=== PATIENT | male | born 1950 | race Hispanic/Latino ===

== ENCOUNTER 2017-03-17 16:02 | Emergency (ER) | payer MEDICAID, OTHER ==
[2017-03-17 16:02] VITALS: BMI 25.7
[2017-03-17 16:38] VITALS: BP 99/68; PULSE 86; RESP 18; TEMP 97.3; O2SAT 99
--- NOTE | 2017-03-17 17:35 | C.PDOC ---
History Of Present Illness Patient is a 66 year old male who presents to the ER requesting detox of ETOH and "everything" elce. Patient is vague about his history with substance abuse. Denies any PMHx. Did not prescreen by detox. Has no physical complaints at time. Time Seen by Provider: 03/17/17 17:28 Chief Complaint (Nursing): Substance Abuse History Per: Patient History/Exam Limitations: no limitations Onset/Duration Of Symptoms: Hrs Current Symptoms Are (Timing): Still Present Modifying Factor(s): Alcohol, Other (Unknown substance) Past Medical History Reviewed: Historical Data, Nursing Documentation, Vital Signs Vital Signs: Last Vital Signs Temp 97.3 F L 03/17/17 16:35 Pulse 86 03/17/17 16:35 Resp 18 03/17/17 16:35 BP 99/68 L 03/17/17 16:35 Pulse Ox 99 03/17/17 17:51 - Medical History PMH: No Chronic Diseases Surgical History: No Surg Hx - [facility] Procedures CLOSURE SKIN & SUBCUTANEOUS NEC (03/30/15) DPT ADMINISTRATION (04/18/15) INJECT/INFUSE NEC (04/18/15) VENOUS PUNCTURE NEC (04/25/14) Family History: States: No Known Family Hx - Social History Hx Tobacco Use: Yes Hx Alcohol Use: Yes Hx Substance Use: Yes Review Of Systems Constitutional: Negative for: Fever, Chills Respiratory: Negative for: Cough, Shortness of Breath Gastrointestinal: Negative for: Nausea, Vomiting Physical Exam - Physical Exam Appears: Well, Non-toxic Skin: Normal Color, Warm, Dry Head: Atraumatic, Normacephalic Oral Mucosa: Moist Chest: Symmetrical, No Tenderness Cardiovascular: Rhythm Regular, No Murmur Respiratory: Normal Breath Sounds, No Rales, No Rhonchi, No Wheezing Gastrointestinal/Abdominal: Soft, No Tenderness Neurological/Psych: Oriented x3, Normal Speech, Normal Cognition ED Course And Treatment O2 Sat by Pulse Oximetry: 99 (Room air) Pulse Ox Interpretation: Normal Medical Decision Making Medical Decision Making: Patient not evaluated for detox due to lack of bed availability. Disposition Counseled Patient/Family Regarding: Need For Followup - Disposition Disposition: HOME/ ROUTINE Disposition Time: 17:33 Condition: FAIR Additional Instructions: call [phone] to see when there is a bed open Forms: General Discharge Instructions - Clinical Impression Clinical Impression: Drug abuse - Scribe Statement The provider has reviewed the documentation as recorded by the Scribe Bryan Lo All medical record entries made by the Scribe were at my direction and personally dictated by me. I have reviewed the chart and agree that the record accurately reflects my personal performance of the history, physical exam, medical decision making, and the department course for this patient. I have also personally directed, reviewed, and agree with the discharge instructions and disposition.
== END 2017-03-17 17:50 | disposition home or self-care (01) ==
LOC: C.ER 16:02
DX: F19.10 Other psychoactive substance abuse, uncomplicated (principal)

== ENCOUNTER 2017-03-18 11:26 | Emergency (ER) | payer MEDICAID ==
[2017-03-18 11:32] VITALS: BMI 22.2
[2017-03-18 11:36] VITALS: RESP 20
--- NOTE | 2017-03-18 12:51 | C.PDOC ---
History Of Present Illness 66-year-old male, presents to the emergency department requesting detox from alcohol. Patients last drink was this morning. Denies nausea/vomiting, SI/HI, or any other associated symptoms. No other complaints at this time. Time Seen by Provider: 03/18/17 12:00 Chief Complaint (Nursing): Substance Abuse History Per: Patient History/Exam Limitations: no limitations Past Medical History Reviewed: Historical Data, Nursing Documentation, Vital Signs Vital Signs: Last Vital Signs Temp 98.0 F 03/18/17 12:56 Pulse 80 03/18/17 12:56 Resp 20 03/18/17 12:56 BP 108/77 03/18/17 12:56 Pulse Ox 100 03/18/17 15:22 - [facility] Procedures CLOSURE SKIN & SUBCUTANEOUS NEC (03/30/15) DPT ADMINISTRATION (04/18/15) INJECT/INFUSE NEC (04/18/15) VENOUS PUNCTURE NEC (04/25/14) Family History: States: Unknown Family Hx - Social History Hx Tobacco Use: Yes Hx Alcohol Use: Yes Hx Substance Use: No - Immunization History Hx Tetanus Toxoid Vaccination: No Hx Influenza Vaccination: No Hx Pneumococcal Vaccination: No Review Of Systems Except As Marked, All Systems Reviewed And Found Negative. Constitutional: Negative for: Fever Cardiovascular: Negative for: Chest Pain Respiratory: Negative for: Shortness of Breath Musculoskeletal: Negative for: Back Pain Skin: Negative for: Rash Neurological: Negative for: Weakness, Numbness, Headache, Dizziness Psych: Negative for: Suicidal ideation Physical Exam - Physical Exam Appears: Non-toxic, No Acute Distress, Other (No signs or symptoms of acute withdrawal. No tremors) Skin: Warm, Dry, No Rash Head: Atraumatic, Normacephalic Eye(s): bilateral: Normal Inspection, PERRL Nose: Normal Oral Mucosa: Moist Tongue: Other (No tongue fasciculation) Neck: Normal ROM Respiratory: No Accessory Muscle Use Extremity: Normal ROM Neurological/Psych: Oriented x3, Normal Speech ED Course And Treatment O2 Sat by Pulse Oximetry: 100 Medical Decision Making Medical Decision Making: Patient seen and evaluated by precast concrete ironworker, who states that there are no detox beds available. Patient will be given instructions to f/u, and information for detox co-ordinator. All questions answered. Patient is agreeable with plan. Disposition - Disposition Disposition: HOME/ ROUTINE Disposition Time: 12:36 Condition: STABLE Additional Instructions: Follow up with PMD within 1-2 days. Return to ED if feel worse. Instructions: Abuse of Alcohol (ED) - Clinical Impression Clinical Impression: Alcohol abuse - Scribe Statement The provider has reviewed the documentation as recorded by the Israibmelecio Narvaez All medical record entries made by the Israibmelecio were at my direction and personally dictated by me. I have reviewed the chart and agree that the record accurately reflects my personal performance of the history, physical exam, medical decision making, and the department course for this patient. I have also personally directed, reviewed, and agree with the discharge instructions and disposition.
[2017-03-18 12:58] VITALS: BP 108/77; PULSE 80; TEMP 98
[2017-03-18 15:20] VITALS: O2SAT 100
== END 2017-03-18 12:58 | disposition home or self-care (01) ==
LOC: C.ER 11:26
DX: F10.10 Alcohol abuse, uncomplicated (principal); Y90.9 Presence of alcohol in blood, level not specified

== ENCOUNTER 2017-03-19 16:16 | Emergency (ER) | payer MEDICAID ==
[2017-03-19 16:16] VITALS: BMI 22.2
[2017-03-19 16:27] VITALS: BP 99/64; PULSE 82; RESP 16; TEMP 97.5; O2SAT 97
--- NOTE | 2017-03-19 17:04 | C.PDOC ---
History Of Present Illness 66-year-old male PMHx of EtOH Abuse presents to the emergency department requesting detox from alcohol. Patient has no current physical complaints. Time Seen by Provider: 03/19/17 16:56 Chief Complaint (Nursing): Substance Abuse History Per: Patient History/Exam Limitations: no limitations Past Medical History Reviewed: Historical Data, Nursing Documentation, Vital Signs Vital Signs: Last Vital Signs Temp 97.5 F L 03/19/17 16:26 Pulse 82 03/19/17 16:26 Resp 16 03/19/17 16:26 BP 99/64 L 03/19/17 16:26 Pulse Ox 97 03/24/17 12:09 - [facility] Procedures CLOSURE SKIN & SUBCUTANEOUS NEC (03/30/15) DPT ADMINISTRATION (04/18/15) INJECT/INFUSE NEC (04/18/15) VENOUS PUNCTURE NEC (04/25/14) Family History: States: Unknown Family Hx - Social History Hx Tobacco Use: Yes Hx Alcohol Use: Yes Hx Substance Use: No - Immunization History Hx Tetanus Toxoid Vaccination: No Hx Influenza Vaccination: No Hx Pneumococcal Vaccination: No Review Of Systems Except As Marked, All Systems Reviewed And Found Negative. Constitutional: Negative for: Fever, Chills Cardiovascular: Negative for: Chest Pain, Palpitations Gastrointestinal: Negative for: Vomiting Skin: Negative for: Rash Neurological: Negative for: Headache, Dizziness Psych: Negative for: Suicidal ideation Physical Exam - Physical Exam Appears: Non-toxic, No Acute Distress Skin: Warm, Dry, No Rash Eye(s): bilateral: Normal Inspection Nose: Normal Lips: Normal Appearing Neck: Normal ROM Respiratory: No Accessory Muscle Use Extremity: Normal ROM Neurological/Psych: Oriented x3, Normal Speech ED Course And Treatment O2 Sat by Pulse Oximetry: 97 (RA) Pulse Ox Interpretation: Normal Progress Note: Spoke with crisis counselor Negro, there are no current detox beds available at this time. He was instructed to return to ED at later date, and given crisis number for prescreening. Disposition Counseled Patient/Family Regarding: Studies Performed, Diagnosis, Need For Followup - Disposition Referrals: [facility] [Outside] Disposition: HOME/ ROUTINE Disposition Time: 17:20 Condition: STABLE Additional Instructions: RETURN TO ER TO TRY FOR DETOX BED, OR CALL CRISIS NUMBER GIVEN TO YOU DURING PREVIOUS ED VISIT Instructions: Alcohol Dependence (ED) Print Language: PORTUGUESE - POA Present On Arrival: None - Clinical Impression Clinical Impression: Alcohol abuse - Scribe Statement The provider has reviewed the documentation as recorded by the Scribe Douglas Narvaez All medical record entries made by the Israibe were at my direction and personally dictated by me. I have reviewed the chart and agree that the record accurately reflects my personal performance of the history, physical exam, medical decision making, and the department course for this patient. I have also personally directed, reviewed, and agree with the discharge instructions and disposition.
--- NOTE | 2017-03-19 17:08 | C.PDOC ---
Time Seen by Provider: 03/19/17 16:56 Chief Complaint (Nursing): Substance Abuse Past Medical History Vital Signs: Last Vital Signs Temp 97.5 F L 03/19/17 16:26 Pulse 82 03/19/17 16:26 Resp 16 03/19/17 16:26 BP 99/64 L 03/19/17 16:26 Pulse Ox 97 03/19/17 16:26 - [facility] Procedures CLOSURE SKIN & SUBCUTANEOUS NEC (03/30/15) DPT ADMINISTRATION (04/18/15) INJECT/INFUSE NEC (04/18/15) VENOUS PUNCTURE NEC (04/25/14) Family History: States: Unknown Family Hx - Social History Hx Tobacco Use: Yes Hx Alcohol Use: Yes Hx Substance Use: No - Immunization History Hx Tetanus Toxoid Vaccination: No Hx Influenza Vaccination: No Hx Pneumococcal Vaccination: No ED Course And Treatment O2 Sat by Pulse Oximetry: 97 Disposition Counseled Patient/Family Regarding: Studies Performed, Diagnosis, Need For Followup - Disposition Referrals: [facility] [Outside] Disposition: HOME/ ROUTINE Disposition Time: 17:00 Condition: STABLE Additional Instructions: RETURN TO ER TO TRY FOR DETOX BED, OR CALL CRISIS NUMBER GIVEN TO YOU DURING PREVIOUS ED VISIT Instructions: Alcohol Dependence (ED) Print Language: DUTCH - POA Present On Arrival: None - Clinical Impression Clinical Impression: Alcohol abuse
== END 2017-03-19 17:10 | disposition home or self-care (01) ==
LOC: C.ER 16:16
DX: F10.10 Alcohol abuse, uncomplicated (principal); Y90.9 Presence of alcohol in blood, level not specified

== ENCOUNTER 2017-06-19 14:02 | Emergency (ER) | payer SELFPAY ==
[2017-06-19 14:03] VITALS: BMI 22.2
[2017-06-19 14:11] VITALS: BP 124/84; PULSE 78; RESP 20; TEMP 98; O2SAT 95
--- NOTE | 2017-06-19 14:31 | C.PDOC ---
History Of Present Illness 66 yr old male brought in via BLS, presents to the ER for being found drunk on street. AT present time, pt appears awake, verbal, admits ' drinking a lot". Patient denies known trauma or injury, headache, chest pain, SOB, dyspnea, palpitation, abd. pain, nausea, vomiting, denies SI or HI. Poor historian, No obvious evidence of trauma noted. Time Seen by Provider: 06/19/17 14:16 Chief Complaint (Nursing): Substance Abuse History Per: Patient, EMS History/Exam Limitations: no limitations, intoxication Onset/Duration Of Symptoms: Persistent Modifying Factor(s): Alcohol Past Medical History Reviewed: Historical Data, Nursing Documentation, Vital Signs Vital Signs: Last Vital Signs Temp 98 F 06/19/17 14:05 Pulse 78 06/19/17 14:05 Resp 20 06/19/17 14:05 BP 124/84 06/19/17 14:05 Pulse Ox 95 06/19/17 15:21 - [facility] Procedures CLOSURE SKIN & SUBCUTANEOUS NEC (03/30/15) DPT ADMINISTRATION (04/18/15) INJECT/INFUSE NEC (04/18/15) VENOUS PUNCTURE NEC (04/25/14) Family History: States: No Known Family Hx - Social History Hx Tobacco Use: Yes Hx Alcohol Use: Yes Hx Substance Use: No - Immunization History Hx Tetanus Toxoid Vaccination: No Hx Influenza Vaccination: No Hx Pneumococcal Vaccination: No Review Of Systems Except As Marked, All Systems Reviewed And Found Negative. Cardiovascular: Negative for: Chest Pain Respiratory: Negative for: Shortness of Breath Gastrointestinal: Negative for: Nausea, Vomiting Psych: Negative for: Suicidal ideation Physical Exam - Physical Exam Appears: Well, Non-toxic, No Acute Distress Skin: Warm, Dry, No Rash, No Ecchymosis Head: Atraumatic, Normacephalic Eye(s): bilateral: PERRL Nose: No Discharge, No Deformity, No Tenderness Oral Mucosa: Moist, No Drooling, Other ((+)strong alcohol odor) Tongue: Normal Appearing Lips: Normal Appearing Throat: No Drooling Neck: No Midline Cervical Tenderness, No Paracervical Tenderness, No Step Off Deformity, Supple Chest: Symmetrical, No Deformity, No Tenderness Cardiovascular: Rhythm Regular, No Edema, No Friction Rub, No Murmur, No JVD Respiratory: No Rales, No Wheezing Gastrointestinal/Abdominal: Soft, No Tenderness, No Distention, No Guarding Back: No Vertebral Tenderness Extremity: Normal ROM, No Pedal Edema, No Deformity, No Swelling Neurological/Psych: Oriented x3, Normal Speech, Normal Motor, Normal Sensation, Normal Reflexes ED Course And Treatment O2 Sat by Pulse Oximetry: 95 Progress Note: As per RN, pt refused EKG, denies CP, SOB. FSBS 79. Pt asked for food, was fed, tolerate PO well in Ed. Pt was ambulatory in ED, asking for discharge. At 15:45, pt was not found in any area of ED, eloped ED department. Pt was called three times by name without response. Pt eloped from ED department. Medical Decision Making Medical Decision Making: PLAN: * EKG Disposition - Disposition Disposition: ELOPEMENT - ER ONLY Disposition Time: 15:45 Condition: STABLE - Clinical Impression Clinical Impression: Alcohol intoxication - PA / CASE ASSEMBLER / Resident Statement MD/DO has reviewed & agrees with the documentation as recorded. - Scribe Statement The provider has reviewed the documentation as recorded by the Scribe Susana Borges All medical record entries made by the Scribe were at my direction and personally dictated by me. I have reviewed the chart and agree that the record accurately reflects my personal performance of the history, physical exam, medical decision making, and the department course for this patient. I have also personally directed, reviewed, and agree with the discharge instructions and disposition.
--- NOTE | 2017-06-22 12:28 | CARD ---
APPROVED REPORT EKG Measurement Heart [id number] CT [id number] <Conclusion> Normal sinus rhythm Normal ECG
== END 2017-06-19 15:30 | disposition left against medical advice (07) ==
LOC: C.ER 14:02
DX: F10.120 Alcohol abuse with intoxication, uncomplicated (principal); Y90.9 Presence of alcohol in blood, level not specified

== ENCOUNTER 2017-06-19 17:17 | Observation (INO) | payer SELFPAY ==
[2017-06-19 17:18] VITALS: BMI 22.2
--- NOTE | 2017-06-19 17:42 | C.PDOC ---
History Of Present Illness <Siomara Main - Last Filed: 06/19/17 18:39> <Shayan Miles - Last Filed: 06/19/17 20:59> <Blaine Puente - Last Filed: 06/19/17 23:28> Patient presents to the ER with acute ETOH intoxication. Pt was seen here early today due to same complain- alcohol intoxication when eloped from ED. At present time, pt resent more intoxicated, non-verbal but awake. As per EKS,"was found outside, drunk". No obvious sign of injury. no hx available from pt due to acute alcohol intoxication. (Siomara Main) History Per: EMS History/Exam Limitations: language barrier Onset/Duration Of Symptoms: Persistent Modifying Factor(s): Alcohol <Siomara Main - Last Filed: 06/19/17 18:39> <Shayan Miles - Last Filed: 06/19/17 20:59> <Blaine Puente - Last Filed: 06/19/17 23:28> Time Seen by Provider: 06/19/17 17:33 Chief Complaint (Nursing): Substance Abuse Past Medical History Reviewed: Historical Data, Nursing Documentation, Vital Signs Family History: States: No Known Family Hx - Social History Hx Tobacco Use: Yes Hx Alcohol Use: Yes Hx Substance Use: No - Immunization History Hx Tetanus Toxoid Vaccination: No Hx Influenza Vaccination: No Hx Pneumococcal Vaccination: No <Siomara Main - Last Filed: 06/19/17 18:39> Review Of Systems Review Of Systems: ROS cannot be obtained secondary to pt's inabilty to answer questions. (Due to alcohol intoixication) <Siomara Main - Last Filed: 06/19/17 18:39> Physical Exam - Physical Exam Appears: No Acute Distress Skin: Warm, No Rash, No Ecchymosis Head: Atraumatic Nose: No Deformity, No Tenderness Oral Mucosa: Moist Neck: No Midline Cervical Tenderness, No Paracervical Tenderness, No Step Off Deformity, Supple Chest: Symmetrical, No Deformity, No Tenderness Cardiovascular: Rhythm Regular Respiratory: No Decreased Breath Sounds, No Accessory Muscle Use, No Stridor, No Wheezing Gastrointestinal/Abdominal: Soft, No Tenderness Back: No Vertebral Tenderness Extremity: No Pedal Edema, No Deformity Neurological/Psych: Other (unab;e to perform due to intoxication) <Siomara Main - Last Filed: 06/19/17 18:39> ED Course And Treatment ECG: Interpreted By Me, Viewed By Me ECG Rhythm: Sinus Rhythm ECG Interpretation: Normal, No Acute Changes Interpretation Of ECG: NSR, normal tracings Rate From EC <Shayan Miles R - Last Filed: 06/19/17 20:59> Medical Decision Making <Siomara Main - Last Filed: 06/19/17 18:39> <Shayan Miles R - Last Filed: 06/19/17 20:59> <Blaine Puente - Last Filed: 06/19/17 23:28> Medical Decision Makin: sober, vertical, stable gait, wants d/c home. Wants d/c paperwork. (Blaine Puente) ED OBSERVATION Date of observation admission: 06/19/17 Time of observation admission: 17:35 <Siomara Main - Last Filed: 06/19/17 18:39> <Shayan Miles R - Last Filed: 06/19/17 20:59> Discharge: Yes <Blaine Puente - Last Filed: 06/19/17 23:28> - Observation admission statement Patient is being placed in observation because:: Acute alcohol intoxication (Siomara Main) - Goals of Observation Goals of observation are:: Sx tx, serial neuro re-eval, sobriety, re-eval and dispo (Siomara Main) - Progress Note Progress Note: 06/19/17 At 18:36, pt resting comfortably in bed, not in any apparent distress. FSBS 93. Neurologicaly intact. Case discussed and further care transfer to next shift-Daniel Capone PA Sobriety, re-eval and dispo- pending. (Siomara Main) Disposition <Siomara Main - Last Filed: 06/19/17 18:39> <Shayan Miles R - Last Filed: 06/19/17 20:59> Doctor Will See Patient In The: Office Counseled Patient/Family Regarding: Studies Performed, Diagnosis - Disposition Disposition Time: 23:28 <Blaine Puente - Last Filed: 06/19/17 23:28> - Disposition Disposition: HOME/ ROUTINE Condition: GOOD - Clinical Impression Clinical Impression: Alcohol intoxication - PA / STRIPE MATCHER / Resident Statement MD/DO has reviewed & agrees with the documentation as recorded. - Scribe Statement The provider has reviewed the documentation as recorded by the Scribe <Siomara Main - Last Filed: 06/19/17 18:39> <Shayan Miles - Last Filed: 06/19/17 20:59> <Blaine Puente - Last Filed: 06/19/17 23:28> - Scribe Statement Susana Borges All medical record entries made by the Scribe were at my direction and personally dictated by me. I have reviewed the chart and agree that the record accurately reflects my personal performance of the history, physical exam, medical decision making, and the department course for this patient. I have also personally directed, reviewed, and agree with the discharge instructions and disposition. (Siomara Main)
[2017-06-19 17:43] VITALS: RESP 16
[2017-06-19] MEDS ORDERED: Sodium Chloride 0.9% 1,000 ML IV ONE (18:19)
[2017-06-19] MEDS ORDERED: Sodium Chloride 0.9% 1,000 ML ONE (18:20)
[2017-06-19 22:01] VITALS: O2SAT 96
[2017-06-19 23:32] VITALS: BP 103/67; PULSE 78; TEMP 97.3
== END 2017-06-19 23:28 | disposition home or self-care (01) ==
LOC: C.ER 17:17 → C.9OBSV 17:35
PROVIDERS: ADMIT Emergency Medicine; ATTEND Emergency Medicine
DX: F10.129 Alcohol abuse with intoxication, unspecified (principal); Z87.891 Personal history of nicotine dependence; Y90.9 Presence of alcohol in blood, level not specified
CPT/HCPCS: 82948; 96360; 96374; 99285; G0378

== ENCOUNTER 2017-06-27 16:19 | Emergency (ER) | payer SELFPAY ==
[2017-06-27 16:21] VITALS: BMI 22.2
[2017-06-27 17:29] VITALS: RESP 18
--- NOTE | 2017-06-27 18:29 | C.PDOC ---
History Of Present Illness 66 year old male was brought to the emergency department by EMS after being found wandering in public with EtOH on breath. Patient has a history of public intoxication and denies any injuries or physical complaints at this time. Time Seen by Provider: 06/27/17 17:54 Chief Complaint (Nursing): Substance Abuse History Per: EMS History/Exam Limitations: no limitations Onset/Duration Of Symptoms: Hrs Current Symptoms Are (Timing): Still Present Suicide/Self Injury Attempted (Context): None Involuntary Hold By: None Recent travel outside of the [place]: No Additional History Per: Prior Records Past Medical History Reviewed: Historical Data, Nursing Documentation, Vital Signs Vital Signs: Last Vital Signs Temp 97.3 F L 06/27/17 17:14 Pulse 65 06/27/17 17:14 Resp 18 06/27/17 17:14 BP 110/69 06/27/17 17:14 Pulse Ox 95 06/27/17 18:40 - [facility] Procedures CLOSURE SKIN & SUBCUTANEOUS NEC (03/30/15) DPT ADMINISTRATION (04/18/15) INJECT/INFUSE NEC (04/18/15) VENOUS PUNCTURE NEC (04/25/14) Family History: States: Unknown Family Hx - Social History Hx Tobacco Use: Yes Hx Alcohol Use: Yes Hx Substance Use: No - Immunization History Hx Tetanus Toxoid Vaccination: No Hx Influenza Vaccination: No Hx Pneumococcal Vaccination: No Review Of Systems Constitutional: Negative for: Fever, Chills Cardiovascular: Negative for: Chest Pain Respiratory: Negative for: Shortness of Breath Gastrointestinal: Negative for: Nausea, Vomiting, Abdominal Pain, Diarrhea Physical Exam - Physical Exam Appears: Non-toxic, No Acute Distress, Other (EtOH on breath ) Skin: Warm, Dry Head: Atraumatic Eye(s): bilateral: Normal Inspection, PERRL, EOMI Oral Mucosa: Moist Neck: Supple Chest: Symmetrical, No Deformity Cardiovascular: Rhythm Regular Respiratory: Normal Breath Sounds, No Rhonchi, No Wheezing Gastrointestinal/Abdominal: Soft, No Tenderness, No Distention, No Guarding, No Rebound Extremity: Normal ROM, No Tenderness Neurological/Psych: Oriented x3 ED Course And Treatment O2 Sat by Pulse Oximetry: 95 (room air ) Reevaluation Time: 20:13 Reassessment Condition: Improved (pt eloped from ER with stable gait) Medical Decision Making Medical Decision Making: typical alcohol abuse ED OBSERVATION Date of observation admission: 06/27/17 Time of observation admission: 17:25 - Observation admission statement Patient is being placed in observation because:: patient is intoxicated. - Goals of Observation Goals of observation are:: sobriety. Disposition Doctor Will See Patient In The: Office Counseled Patient/Family Regarding: Studies Performed, Diagnosis - Disposition Disposition: ELOPEMENT - ER ONLY Disposition Time: 20:00 Condition: GOOD Forms: [facility] (Polish) - Clinical Impression Clinical Impression: Alcohol intoxication - Scribe Statement The provider has reviewed the documentation as recorded by the Israibmelecio Pringle All medical record entries made by the River were at my direction and personally dictated by me. I have reviewed the chart and agree that the record accurately reflects my personal performance of the history, physical exam, medical decision making, and the department course for this patient. I have also personally directed, reviewed, and agree with the discharge instructions and disposition.
[2017-06-27 20:19] VITALS: BP 113/78; PULSE 78; TEMP 97.2; O2SAT 96
== END 2017-06-27 20:00 | disposition left against medical advice (07) ==
LOC: C.ER 16:19
DX: F10.129 Alcohol abuse with intoxication, unspecified (principal); Y90.9 Presence of alcohol in blood, level not specified

== ENCOUNTER 2017-08-13 14:26 | Emergency (ER) | payer SELFPAY ==
[2017-08-13 14:27] VITALS: BMI 22.2
[2017-08-13 16:51] LABS: BASO % 0.6 % (0.0-2.0); EOS # 0.2 K/uL (0.0-0.7); EOS % 2.6 % (0.0-4.0); HEMATOCRIT 40.1 % (35.0-51.0); LYMPH # 2.4 K/uL (1.0-4.3); LYMPH % 34.8 % (20.0-40.0); MEAN CELL VOLUME 95.9 fL (80.0-94.0); MEAN CORPUSCULAR HEMOGLOBIN 31.9 pg (27.0-31.0); MEAN CORPUSCULAR HGB CONC 33.2 g/dL (33.0-37.0); MEAN PLATELET VOLUME 7.3 fL (7.2-11.7); MONO # 0.6 K/uL (0.0-0.8); MONO % 8.5 % (0.0-10.0); NRBC % 0.1 % (0.0-2.0); RED CELL DISTRIBUTION WIDTH 16.4 % (11.5-14.5); WHITE BLOOD COUNT 6.9 K/uL (4.8-10.8)
[2017-08-13 17:02] LABS: ALB/GLOB RATIO 1.3 (1.0-2.1); ALKALINE PHOSPHATASE 91 U/L (38-126); ALT/SGPT 28 U/L (21-72); AST/SGOT 30 U/L (17-59); BILIRUBIN,TOTAL 0.2 mg/dL (0.2-1.3); BLOOD UREA NITROGEN 9 mg/dL (9-20); CALCIUM 8.7 mg/dl (8.6-10.4); CARBON DIOXIDE 26 mmol/L (22-30); CHLORIDE 105 mmol/L (98-107); GFR AFRICAN-AMERICAN > 60; GLUCOSE,RANDOM 75 mg/dL (75-110); POTASSIUM 4.4 mmol/L (3.6-5.2); SODIUM 147 mmol/L (132-148); TOTAL PROTEIN 7.5 g/dL (6.3-8.3)
[2017-08-13 17:17] LABS: URINE BILIRUBIN NEGATIVE (NEGATIVE); URINE BLOOD NEGATIVE (NEGATIVE); URINE COLOR Straw (YELLOW); URINE GLUCOSE (UA) NORMAL (Normal); URINE KETONE NEGATIVE (NEGATIVE); URINE LEUKOCYTE ESTERASE NEG Leu/uL (Negative); URINE PROTEIN NEGATIVE (NEGATIVE); URINE UROBILINOGEN NORMAL mg/dL (0.2-1.0)
[2017-08-13 17:20] LABS: ALCOHOL SERUM 326 mg/dl (0-10)
[2017-08-13 19:38] VITALS: BP 124/72; PULSE 90; RESP 18; TEMP 97.8; O2SAT 99
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
== END 2017-08-13 19:38 | disposition left against medical advice (07) ==
LOC: C.ER 14:26
DX: F10.129 Alcohol abuse with intoxication, unspecified (principal); Y90.8 Blood alcohol level of 240 mg/100 ml or more
CPT/HCPCS: 80053; 81001; 82948; 85025; 99284; G0480

== ENCOUNTER 2017-08-21 06:58 | Observation (INO) | payer SELFPAY ==
[2017-08-21 06:58] VITALS: BMI 22.2
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
[2017-08-21 18:09] VITALS: O2SAT 94
[2017-08-21 18:57] VITALS: BP 134/81; PULSE 80; RESP 18; TEMP 97.9
== END 2017-08-21 18:08 | disposition home or self-care (01) ==
LOC: C.ER 06:58 → C.9OBSV 08:05
PROVIDERS: ADMIT Emergency Medicine; ATTEND Emergency Medicine
DX: F10.129 Alcohol abuse with intoxication, unspecified (principal); F17.210 Nicotine dependence, cigarettes, uncomplicated; Z59.0 Homelessness
CPT/HCPCS: 82948; 99285; G0378

== ENCOUNTER 2017-10-07 22:10 | Inpatient (IN) | payer MEDICAID, MEDICARE ==
[2017-10-07 22:11] VITALS: BMI 22.2
[2017-10-07] MEDS ORDERED: Tetanus/Diphtheria Toxoids 0.5 ml Syringe IM ONE (23:13)
[2017-10-08] MEDS ORDERED: Tetanus/Diphtheria Toxoids 0.5 ml Syringe IM ONE (00:01)
--- NOTE | 2017-10-08 00:15 | CT ---
EXAM: CT Head Without Intravenous Contrast CLINICAL HISTORY: 67 years old, male; Pain; Headache and other: Fall. Facial injury, ETOH use; Patient HX: 04-19-15 sent images TECHNIQUE: Axial computed tomography images of the head/brain without intravenous contrast. All CT scans at this facility use one or more dose reduction techniques, viz.: automated exposure control; ma/kV adjustment per patient size (including targeted exams where dose is matched to indication; i.e. head); or iterative reconstruction technique. Coronal reformatted images were created and reviewed. COMPARISON: No relevant prior studies available. FINDINGS: Limitations: Motion artifact - mild. Brain: Mild atrophy. No definite intracranial hemorrhage. No mass. No edema. Ventricles: No hydrocephalus. Bones/joints: No calvarial fracture. Soft tissues: Frontal soft tissue swelling. Mastoid air cells: No mastoid effusion. IMPRESSION: 1. No definite intracranial hemorrhage. 2. See facial bone CT report for additional details. 3. Incidental/non-acute findings are described above.
--- NOTE | 2017-10-08 00:19 | CT ---
EXAM: CT Orbits Without Intravenous Contrast CLINICAL HISTORY: 67 years old, male; Pain; Nose pain; Additional info: Fall, trauma to face, nose lac TECHNIQUE: Axial computed tomography images of the orbits without intravenous contrast. All CT scans at this facility use one or more dose reduction techniques, viz.: automated exposure control; ma/kV adjustment per patient size (including targeted exams where dose is matched to indication; i.e. head); or iterative reconstruction technique. Coronal and sagittal reformatted images were created and reviewed. COMPARISON: No relevant prior studies available. FINDINGS: Orbits: Unremarkable as visualized. Sinuses: Scattered mild to moderate mucosal thickening. No air-fluid levels. Bones/joints: Degenerative changes of cervical spine. Angulated fracture RIGHT nasal bone. Nondisplaced fracture LEFT nasal bone. Angulated fracture nasal septum. Avulsion fracture maxillary spine. Soft tissues: Mild facial soft tissue swelling. IMPRESSION: 1. Nasal fractures. 2. Incidental/non-acute findings are described above.
--- NOTE | 2017-10-08 01:49 | CT ---
EXAM: CT Cervical Spine Without Intravenous Contrast CLINICAL HISTORY: 67 years old, male; Pain; Neck pain; Additional info: Fall, c2 FX on head CT, ETOH use TECHNIQUE: Axial computed tomography images of the cervical spine without intravenous contrast. All CT scans at this facility use one or more dose reduction techniques, viz.: automated exposure control; ma/kV adjustment per patient size (including targeted exams where dose is matched to indication; i.e. head); or iterative reconstruction technique. Coronal and sagittal reformatted images were created and reviewed. COMPARISON: No relevant prior studies available. FINDINGS: Limitations: Suboptimal reformations. Vertebrae: Nondisplaced oblique fracture C2 vertebral body. Nondisplaced fracture RIGHT C2 lamina. Facet osteoarthrosis. Discs/spinal canal/neural foramina: Early degenerative disc disease within upper and mid cervical spine. Mild degenerative disc disease within lower cervical spine. No significant central canal stenosis. Neuroforaminal narrowing with mid and lower cervical spine. Soft tissues: Unremarkable. Vasculature: Minimal atherosclerotic disease. Sinuses: Scattered mucosal thickening of visualized sinuses. Lung apices: Mild to moderate emphysematous changes. IMPRESSION: 1. C2 fracture. 2. Incidental/non-acute findings are described above.
[2017-10-08] MEDS ORDERED: Sodium Chloride 0.9% 1,000 ML IV ONE (01:56)
[2017-10-08 02:30] LABS: BASO # 0.1 K/uL (0.0-0.2); BASO % 0.9 % (0.0-2.0); EOS # 0.5 K/uL (0.0-0.7); EOS % 5.7 % (0.0-4.0); HEMATOCRIT 43.8 % (35.0-51.0); LYMPH # 2.7 K/uL (1.0-4.3); LYMPH % 29.7 % (20.0-40.0); MEAN CELL VOLUME 95.3 fL (80.0-94.0); MEAN CORPUSCULAR HGB CONC 33.6 g/dL (33.0-37.0); MEAN PLATELET VOLUME 8.7 fL (7.2-11.7); MONO # 0.6 K/uL (0.0-0.8); MONO % 6.5 % (0.0-10.0); RED CELL DISTRIBUTION WIDTH 14.3 % (11.5-14.5); WHITE BLOOD COUNT 9.2 K/uL (4.8-10.8)
[2017-10-08 02:40] LABS: CHLORIDE 106 mmol/L (98-107)
[2017-10-08 02:41] LABS: POTASSIUM 4.8 mmol/L (3.6-5.2); SODIUM 144 mmol/L (132-148)
[2017-10-08 02:43] LABS: ALKALINE PHOSPHATASE 89 U/L (38-126); ALT/SGPT 29 U/L (21-72); AST/SGOT 25 U/L (17-59); BILIRUBIN,TOTAL 0.3 mg/dL (0.2-1.3); BLOOD UREA NITROGEN 9 mg/dL (9-20); CARBON DIOXIDE 27 mmol/L (22-30); GFR AFRICAN-AMERICAN > 60; TOTAL PROTEIN 8.9 g/dL (6.3-8.3)
[2017-10-08 02:44] LABS: ALCOHOL SERUM 239 mg/dl (0-10); CALCIUM 8.8 mg/dl (8.6-10.4); GLUCOSE,RANDOM 84 mg/dL (75-110)
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
[2017-10-08] MEDS ORDERED: Multivitamin (MVI) 10 ML, Folic Acid 1 MG, Thiamine 100 MG in Dextrose 5%/0.45% NS 1,00... IV SCH (10:30)
--- NOTE | 2017-10-08 11:19 | CP.PCM.PCO ---
Physician Communication Note - Physician Communication Note Physician Communication Note: Spoke with PORSCHE Mendoza. Librium detox to start. Call us prn
--- NOTE | 2017-10-08 11:45 | CP.PCM.PN ---
Subjective - Date & Time of Evaluation Date of Evaluation: 10/08/17 Time of Evaluation: 10:50 - Subjective Subjective: TUBE HEATER NOTES Patient seen today , awake alert, ox3, denies any headache, blurred vision , c/ o pain to nose and face and neck , seems restless and + mild tremors [place] collar in plac e Objective - Vital Signs/Intake and Output Vital Signs (last 24 hours): Temp Pulse Resp BP Pulse Ox 97.7 F 87 20 104/66 95 10/08/17 07:38 10/08/17 08:00 10/08/17 07:38 10/08/17 07:38 10/08/17 07:38 - Medications Medications: Current Medications Acetaminophen (Tylenol 325mg Tab) 650 mg PO Q6 PRN PRN Reason: Pain, moderate (4-7) Chlordiazepoxide (Librium) 25 mg PO Q6 FABIOLA PRN Reason: Taper Stop: 10/12/17 11:59 Multivitamins/Vitamin C 10 ml/Folic Acid 1 mg/ Thiamine HCl 100 mg/ Dextrose/ Sodium Chloride 1,011.2 mls @ 100 mls/hr IV .Q10H7M [facility] Stop: 10/08/17 20:36 Pneumococcal Polyvalent Vaccine (Pneumovax 23 Vaccine) 0.5 ml IM .ONCE ONE Stop: 10/10/17 10:01 - Labs Labs: 10/08/17 02:25 10/08/17 02:25 PT 11.3 SECONDS (9.7-12.2) 10/08/17 02:25 INR 1.0 10/08/17 02:25 APTT 44 SECONDS (21-34) H 10/08/17 02:25 Assessment and Plan - Assessment and Plan (Free Text) Assessment: A/P 67 yr old male admitted with c2 fx after sustained a fall (alcohol intoxication ) IVF started with MVI , THIAMINE AND FOLIC acid at 100 ml/hr D/W with Dr. Liriano , recommends to start LIBRIUM DETOX PROTOCOL will do swallow eval and start diet PT/OT Dr. Okeefe on consult for C2 fx
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
--- NOTE | 2017-10-08 14:55 | PCM.PSYCH ---
Initial Psychiatric Evaluation - Initial Psychiatric Evaluation Type of Admission: Voluntary Legal Status: Capacity Chief Complaint (in patient's own words): I was drinking.' History of Present Illness and Precipitating Events: This is a 67 year old male is brought to the ED by EMS after sustaining a fall. According to EMS patient has ingested ETOH, tripped and fell causing him injuries to face and a laceration over his nose. Today patient was consulted because of history of alcohol dependence. Patient reports of a long history of drinking. As per the patient he has been drinking about 2 -4 pints of vodka on a daily basis. Yesterday he consumed almost 2 pints of vodka, could not sustain his balance and fell on his face, so he was escorted to the hospital by the EMS. Patient reports withdrawal symptoms including shakes, nausea, headaches and anxiety. Patient denies any feelings of hopelessness or helplessness or worthlessness. Patient denies any auditory or visual hallucinations or any psychotic symptoms. Denies any suicidal ideation or homicidal ideation. Denies any manic symptoms. Denies any other substance abuse. Current Medications: Active Medications Generic Name Dose Route Start Last Admin Trade Name Freq PRN Reason Stop Dose Admin Acetaminophen 650 mg 10/08/17 09:10 Tylenol 325mg Tab PO Q6 PRN Pain, moderate (4-7) Chlordiazepoxide 25 mg 10/08/17 12:00 10/08/17 13:17 Librium PO 10/12/17 11:59 25 mg Q6 FABIOLA Administration Taper Folic Acid 1 mg 10/09/17 10:00 Folic Acid PO DAILY FABIOLA Multivitamins/Vitamin C 10 ml/ 1,011.2 mls @ 100 mls/hr 10/08/17 10:30 10:30 Folic Acid 1 mg/ Thiamine HCl IV 10/08/17 20:36 100 mls/hr 100 mg/ Dextrose/Sodium .Q10H7M FABIOLA Administration Chloride Lorazepam 1 mg 10/08/17 12:19 Ativan IVP Q6H PRN Anxiety Multivitamins 1 tab 10/09/17 10:00 Hexavitamin PO DAILY FABIOLA Pneumococcal Polyvalent Vaccine 0.5 ml 10/10/17 10:00 Pneumovax 23 Vaccine IM 10/10/17 10:01 .ONCE ONE Thiamine HCl 100 mg 10/09/17 10:00 Vitamin B1 Tab PO DAILY FABIOLA Past Psychiatric History - Past Psychiatric History Previous Treatment History: None Pertinent Medical Hx (Current Medical&Sleep Prob, Allergies): Allergies Allergy/AdvReac Type Severity Reaction Status Date / Time No Known Allergies Allergy Verified 10/07/17 22:28 Naproxen 250 mg PO DAILY 10/07/17 Review of Systems - Review of Systems All systems: reviewed and no additional remarkable complaints except - Psychiatric Psychiatric: Anxiety Mental Status Examination - Personal Presentation Personal Presentation: Looks stated age - Affect Affect: Constricted - Motor Activity Motor Activity: Calm - Reliability in Providing Information Reliability in Providing Information: Good - Speech Speech: Organized - Mood Mood: Anxious - Formal Thought Process Formal Thought Process: No Impairment - Obsessions/Compulsions Obsessions: No Compulsions: No - Cognitive Functions Orientation: Person, Place, Situation, Time Sensorium: Alert Attention/Concentration: Attentive Abstract Thinking: [place] Estimate of Intelligence: Below average Judgement: Imparied, as evidence by: Poor judgement, Intact, as evidence by: Insight regarding need for hospitalization - Risk Risk: Withdrawal, Diminished functioning - Limitations Limitations: Living alone DSM 5 DX - DSM 5 DSM 5 Diagnosis: Alcohol use disorder severe Alcohol withdrawal uncomplicated - Recommended/Plan of Treatment Treatment Recommendations and Plan of Treatment: Alcohol use disorder severe CBT Psychoeducation Supportive therapy, individual therapy Use [place] for abstinence Alcohol withdrawal uncomplicated CBT Psychoeducation Supportive therapy, individual therapy Librium when necessary Librium taper folic acid/thiamine/multivitamin Patient psychiatrically cleared and stable for discharge. - Smoking Cessation Smoking Cessation Initiated: No
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
[2017-10-08 20:04] LABS: CHOLESTEROL 163 mg/dL (0-199)
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
--- NOTE | 2017-10-09 07:07 | MRI ---
PROCEDURE: MR CERVICAL SPINE WITHOUT CONTRAST HISTORY: Fx C2 COMPARISON: Cervical spine CT without contrast 10/08/2017 1:16 a.m.. TECHNIQUE: Multiecho multiplanar sequences were performed through the cervical spine without the use of intravenous contrast. FINDINGS: A nondisplaced fracture through the base and mid to left portion of the odontoid process is reiterated and is unchanged in appearance grossly. No retropulsion of fracture fragments identified in the C2 central canal is widely patent. C1-2 articulation is degenerated and there is hyper lordosis of the cervical spine with no additional fracture throughout the remainder of the cervical spine. There is no spondylolisthesis. Vertebral body heights are normal throughout. Diffuse disc desiccation identified. Cervical spinal cord appears normal in intrinsic signal and volume overall. Prevertebral and paraspinal soft tissues reflect only a marginal amount of local edema related to the C2 fracture. C2-C3: No definite disc herniation is identified at C2-3 within neural foramina somewhat obscured by motion artifact but the right neural foramen is widely patent. Some stenosis of the left neural foramen is not excluded. C3-C4: No disc herniation is appreciated minimal disc bulging is appreciate without central canal stenosis. Right neural foramen appears widely patent the left neural foramen is obscured but is also likely adequately patent. C4-C5: A minimal disc osteophyte complex is appreciate without definite disc herniation or significant central canal stenosis. No significant neural foraminal stenosis. C5-C6: No disc herniation is identified or significant central stenosis although limited disc osteophyte complex is appreciated. No definitive neural foraminal stenosis. C6-C7: No disc herniation is identified however a mild central stenosis results from limited disc osteophyte complex in concert with posterior ligamentous hypertrophy. No definitive neural foraminal stenosis. C7-T1: No disc herniation, spinal canal stenosis or neural foraminal narrowing. OTHER FINDINGS: None. IMPRESSION: Oblique but the mid and basilar are not heard fracture extending into left lateral mass of C2 without displacement. No significant stenosis. Limited edema is seen throughout the anterior portion of the C2 odontoid process and left lateral mass. Right C2 laminar fracture less well identified in this exam compared to prior CT 10/08/2017. See separate CT examination. No spondylolisthesis. Limited multilevel degenerative disease including limited spondylosis with a mild central stenosis resulting at C6-7.
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
[2017-10-09 08:19] LABS: PLT(ADP) 132 K/uL
[2017-10-09 08:20] LABS: FUNCTIONING PLTS 142 K/uL; PLT BASE COUNT 274 K/uL
[2017-10-09 08:21] LABS: HEMATOCRIT 38.7 % (35.0-51.0); MEAN CELL VOLUME 95.1 fL (80.0-94.0); MEAN CORPUSCULAR HEMOGLOBIN 31.8 pg (27.0-31.0); MEAN CORPUSCULAR HGB CONC 33.5 g/dL (33.0-37.0); MEAN PLATELET VOLUME 8.6 fL (7.2-11.7); WHITE BLOOD COUNT 9.1 K/uL (4.8-10.8)
[2017-10-09 08:48] LABS: CHLORIDE 101 mmol/L (98-107)
[2017-10-09 08:49] LABS: POTASSIUM 3.7 mmol/L (3.6-5.2); SODIUM 134 mmol/L (132-148)
[2017-10-09 08:51] LABS: GFR AFRICAN-AMERICAN > 60
[2017-10-09 08:52] LABS: BLOOD UREA NITROGEN 7 mg/dL (9-20); CALCIUM 8.2 mg/dl (8.6-10.4); CARBON DIOXIDE 23 mmol/L (22-30); GLUCOSE,RANDOM 84 mg/dL (75-110)
[2017-10-09] MEDS: Multiple Vitamins Tab PO SCH (09:46)
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
--- NOTE | 2017-10-09 14:54 | RAD ---
HISTORY: cough COMPARISON: No prior. FINDINGS: LUNGS: No alveolitis is identified bilaterally. Limited linear atelectasis or fibrosis in the right base and right greater the left medial apices. PLEURA: No significant pleural effusion identified, no pneumothorax apparent. CARDIOVASCULAR: Normal. OSSEOUS STRUCTURES: No significant abnormalities. VISUALIZED UPPER ABDOMEN: Normal. OTHER FINDINGS: None. IMPRESSION: Limited carotid cirrhotic changes as discussed above. No acute infiltrate pleural effusion or pneumothorax. No active cardiopulmonary is grossly evident.
[2017-10-09 15:58] LABS: ABG ALLEN TEST POS; ARTERIAL BLOOD HGB O2 SAT 94.5 % (95.0-98.0); CARBOXYHEMOGLOBIN 2.1 % (0.5-1.5); DRAW SITE LRA; HHB 2.3 % (0.0-5.0); METHEMOGLOBIN 1.1 % (0.0-3.0)
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
--- NOTE | 2017-10-09 18:57 | PN ---
DATE: SUBJECTIVE: The patient is a 67-year-old male with history of ethanol abuse, smoking, was admitted due to fall while intoxicated, but the patient do not remember about the incident, complaining of slight cough, but denies any shortness of breath. Denies fever. No chest pain. No nausea, vomiting or diarrhea. No dizziness. PHYSICAL EXAMINATION: VITAL SIGNS: Temperature 97.8, pulse 70, blood pressure 109/75, respiratory rate 20. HEENT: Head normocephalic, atraumatic. Eyes, PERRLA. Extraocular muscles intact. Conjunctivae clear. Nose patent. Mucous membrane moist. NECK: Supple. No carotid bruit. No JVD or thyromegaly. CHEST: Bilaterally symmetrical. HEART: S1 and S2 positive. LUNGS: Clear to auscultation. ABDOMEN: Soft. Positive bowel sounds. No organomegaly. EXTREMITIES: No edema. No cyanosis. NEUROLOGIC: The patient is awake, alert, moving all 4 extremities. No focal deficits. MEDICATIONS: Albuterol, folic acid, multivitamins. Librium, Pneumococcal, acetaminophen, and thiamine. LABORATORY DATA: White blood cells noted , hemoglobin 12.9, hematocrit 38.7, and platelets 295. Sodium 134, potassium 3.7, BUN 7, creatinine 0.6. Calcium 8.2, triglycerides 153. ASSESSMENT AND PLAN: Mr Beni Land is a 67-year-old male with hypocalcemia, hypertriglyceridemia, history of ethanol abuse, alcohol level was 239 on 10/08/2017, came with fall, had facial injury, cervical spine injury. Cough, patient has history of smoking with slight cough, underlying chronic obstructive pulmonary disease cannot be ruled out. Started the patient on nebulizer. C-spine fracture, Neurosurgery is on the case. Maybe, the patient will go for surgery on Thursday. Nasal bone fracture, ENT is on the case, and per Cardiology, for C2 fracture repair, perioperative risk is low. Gastrointestinal and deep venous thrombosis prophylaxis. Repeat labs. We will follow up. Claire Gastelum MD [facility]
--- NOTE | 2017-10-09 19:34 | CARD ---
APPROVED REPORT EXAM: Two-dimensional and M-mode echocardiogram with Doppler and color Doppler. Other Information Quality : GoodRhythm : INDICATION Pre-Op ETOH abuse 2D DIMENSIONS IVSd1.1 (0.7-1.1cm)LVDd4.3 (3.9-5.9cm) PWd0.9 (0.7-1.1cm)LVDs2.6 (2.5-4.0cm) FS (%) 39.9 %LVEF (%)70.8 (>50%) M-Mode DIMENSIONS Left Atrium (MM)2.18 (2.5-4.0cm)Aortic Root3.74 (2.2-3.7cm) Aortic Cusp Exc.2.44 (1.5-2.0cm) Aortic Valve AI P 1/2 [id number] Mitral Valve MV E Rpoldlxq05.4cm/sMV A Vfexdhrx62.4cm/sE/A ratio0.7 TDI E/Lateral E'0.0E/Medial E'0.0 Tricuspid Valve TR Peak Ijspetca071gr/sTR Peak Gr.[id number] LEFT VENTRICLE The left ventricle is normal size. There is normal left ventricular wall thickness. The left ventricular function is normal. The left ventricular ejection fraction is within the normal range. There is normal LV segmental wall motion. Transmitral Doppler flow pattern is abnormal. RIGHT VENTRICLE The right ventricle is normal size. ATRIA The left atrium size is normal. AORTIC VALVE There is trace aortic regurgitation. MITRAL VALVE Mitral regurgitation is trace. TRICUSPID VALVE The tricuspid valve is normal in structure. <Conclusion> Normal LV systoli cfunction. Diastolic dysfunction. Trace MR amd AR. Normal chamber size.
[2017-10-09] MEDS: Albuterol-Ipratrop 3 mg / 0.5 (3 ml) UD INH SCH (20:10)
[2017-10-10] MEDS: Albuterol-Ipratrop 3 mg / 0.5 (3 ml) UD INH SCH ×3 (01:10→20:00)
[2017-10-10] MEDS ORDERED: Pneumococcal 23-Valent Vaccine IM ONE (10:00)
[2017-10-10] MEDS: Multiple Vitamins Tab PO SCH (10:37)
--- NOTE | 2017-10-11 00:30 | PN ---
SUBJECTIVE: This is a 67 years old male. The patient is seen and examined at the bedside. No change in respiratory status. No nausea, vomiting, or diarrhea. No hematuria or hematochezia. No fever. No chills. PHYSICAL EXAMINATION VITAL SIGNS: Temperature 98.8, pulse 81, blood pressure 118/77, and respiratory rate 20. HEENT: Eyes, PERRLA. Extraocular movements are intact. Conjunctivae clear. Nose is swollen. Mucous membranes moist. NECK: Supple. No carotid bruit. No thyromegaly. CHEST: Bilaterally symmetrical. HEART: S1 and S2 positive. LUNGS: Clear to auscultation. ABDOMEN: Soft. Bowel sounds are present. No organomegaly. EXTREMITIES: No edema. No cyanosis. NEUROLOGIC: The patient is awake and alert. Moving all four extremities. No focal deficits. LABORATORY DATA: White blood cells 9.1, hemoglobin 12.9, hematocrit 38.7, and platelets 295. Sodium 134, potassium 3.7, BUN 7, creatinine 0.7, and glucose 8.2. MEDICATIONS: DuoNeb, folic acid, multivitamins, Librium, Tylenol, and thiamine. ASSESSMENT AND PLAN: Mr. Beni Land is a 67-year-old male with hypocalcemia, hypertriglyceridemia, history of ethanol abuse, came with fall, had facial injury and cervical spine fracture, may be going for surgery on Thursday, history of smoking, cervical spine fracture. Neurosurgery is on the case. Nasal bone fracture, Ears, Nose, and Throat consult called with Dr. medeiros . Gastrointestinal and deep venous thrombosis prophylaxis. Repeat labs. We will follow up. Claire Gastelum MD [facility]
[2017-10-11] MEDS: Albuterol-Ipratrop 3 mg / 0.5 (3 ml) UD INH SCH ×4 (01:32→19:53)
[2017-10-11] MEDS: Multiple Vitamins Tab PO SCH (10:55)
--- NOTE | 2017-10-11 19:22 | CP.PCM.PN ---
Subjective - Date & Time of Evaluation Date of Evaluation: 10/11/17 Time of Evaluation: 19:22 Objective - Vital Signs/Intake and Output Vital Signs (last 24 hours): Temp Pulse Resp BP Pulse Ox 98.2 F 81 20 98/64 L 96 10/11/17 16:00 10/11/17 16:00 10/11/17 16:00 10/11/17 16:00 10/11/17 16:00 - Medications Medications: Current Medications Acetaminophen (Tylenol 325mg Tab) 650 mg PO Q6 PRN PRN Reason: Pain, moderate (4-7) Last Admin: 10/11/17 18:20 Dose: 650 mg Albuterol/Ipratropium (Duoneb 3 Mg/0.5 Mg (3 Ml) Ud) 3 ml INH RQ6 [facility] Last Admin: 10/11/17 13:14 Dose: 3 ml Chlordiazepoxide (Librium) 25 mg PO DAILY [facility] PRN Reason: Taper Stop: 10/12/17 11:59 Last Admin: 10/11/17 10:55 Dose: 25 mg Chlordiazepoxide (Librium) 25 mg PO Q8 PRN PRN Reason: Symptoms of alcohol withdrawl Folic Acid (Folic Acid) 1 mg PO DAILY [facility] Last Admin: 10/11/17 10:55 Dose: 1 mg Multivitamins (Hexavitamin) 1 tab PO DAILY [facility] Last Admin: 10/11/17 10:55 Dose: 1 tab Thiamine HCl (Vitamin B1 Tab) 100 mg PO DAILY [facility] Last Admin: 10/11/17 10:55 Dose: 100 mg - Labs Labs: 10/09/17 08:15 10/09/17 08:15 PT 11.3 SECONDS (9.7-12.2) 10/08/17 02:25 INR 1.0 10/08/17 02:25 APTT 44 SECONDS (21-34) H 10/08/17 02:25
--- NOTE | 2017-10-12 00:27 | PN ---
DATE: SUBJECTIVE: The patient is 67-year-old male. The patient was seen and examined on the bedside, sleepy, arousable, moving all four extremities. Complaining of pain in the nose and head. No nausea or vomiting. No diarrhea. No hematuria or hematochezia. No shortness of breath. PHYSICAL EXAMINATION VITAL SIGNS: Temperature 98.2, pulse 81, respiratory rate 20, blood pressure 98/64, pulse oximetry 96%. GENERAL: The patient is sleepy, arousable. HEENT: Eyes, PERRLA. Extraocular movements are intact. Conjunctivae clear. Nose is swollen. Mucous membranes moist. NECK: Supple. No carotid bruits. He is in the cervical collar. CHEST: Bilaterally symmetrical. HEART: S1 and S2 positive. LUNGS: Clear to auscultation. ABDOMEN: Soft. Bowel sounds present. No organomegaly. EXTREMITIES: No edema. No cyanosis. MEDICATIONS: Tylenol, DuoNeb, Librium, multivitamins, and thiamine. LABORATORY DATA: White blood cells 9.1,hemoglobin 12.9, hematocrit 38.7, and platelets 295. Sodium 134, potassium 3.7, BUN 7, creatinine 0.6, and glucose 84. ASSESSMENT AND PLAN: Mr. Beni Land is a 67-year-old male with history of ethanol abuse, history of hypocalcemia, hypertriglyceridemia, ethanol abuse, had facial injury, cervical spine fracture, knee surgery, may be going Thursday for surgery. We already called Cardiology and Pulmonary consult for clearance for surgery. Neurosurgery is on the case. The patient has nasal bone fractures also. ENT is on the case. Gastrointestinal and deep venous thrombosis prophylaxis. We will follow up. Claire Gastelum MD
[2017-10-12] MEDS: Albuterol-Ipratrop 3 mg / 0.5 (3 ml) UD INH SCH ×4 (02:30→20:18)
[2017-10-12] MEDS ORDERED: Remifentanil 1 mg/3 ml Vial IV ONE ×2 (07:24→08:58)
[2017-10-12] MEDS ORDERED: Propofol 10 mg/ml Inj (20 ML) ONE ×2 (07:25→09:25)
[2017-10-12] MEDS ORDERED: Absorbable Gelatin Sponge Size 100 ONE (07:25)
[2017-10-12] MEDS ORDERED: ceFAZolin IV 1 gm in Dextrose 0 GM/0 ML BAG IVPB ONE (07:25)
[2017-10-12] MEDS ORDERED: Thrombin Topical 5,000 IU Spray Kit ONE (07:26)
[2017-10-12] MEDS ORDERED: Bupivacaine 0.5% Inj(30mL) ONE (07:26)
[2017-10-12] MEDS ORDERED: Succinylcholine Chloride 20 mg/ml Syr (5 ml) IV ONE (07:26)
[2017-10-12] MEDS ORDERED: Lidocaine Hydrochloride 5 ML INJ ONE (07:32)
[2017-10-12] MEDS ORDERED: Propofol 10 mg/ml 1,000 MG/100 ML VIAL ONE (07:34)
[2017-10-12] MEDS ORDERED: Lidocaine 1%/Epinephrine 1:100000 30 ml vial IJ ONE (07:39)
--- NOTE | 2017-10-12 07:44 | CP.PCM.PN ---
Subjective - Date & Time of Evaluation Date of Evaluation: 10/12/17 Time of Evaluation: 07:43 - Subjective Subjective: Cardiology progress note for Dr. Hank Pereira S DO PGY - 1 Pt s/e bedside. Pt is going to be going to OR today for C2 Frx surgery. No cardiac complaints at this time. Objective - Vital Signs/Intake and Output Vital Signs (last 24 hours): Temp Pulse Resp BP Pulse Ox 97.3 F L 76 18 93/59 L 93 L 10/12/17 07:37 10/12/17 07:37 10/12/17 07:37 10/12/17 07:37 10/12/17 07:37 Intake and Output: 10/12/17 10/12/17 06:59 18:59 Intake Total 0 Output Total 1200 Balance -1200 - Medications Medications: Current Medications Acetaminophen (Tylenol 325mg Tab) 650 mg PO Q6 PRN PRN Reason: Pain, moderate (4-7) Last Admin: 10/11/17 18:20 Dose: 650 mg Albuterol/Ipratropium (Duoneb 3 Mg/0.5 Mg (3 Ml) Ud) 3 ml INH RQ6 [facility] Last Admin: 10/12/17 02:30 Dose: Not Given Chlordiazepoxide (Librium) 25 mg PO DAILY [facility] PRN Reason: Taper Stop: 10/12/17 11:59 Last Admin: 10/11/17 10:55 Dose: 25 mg Chlordiazepoxide (Librium) 25 mg PO Q8 PRN PRN Reason: Symptoms of alcohol withdrawl Folic Acid (Folic Acid) 1 mg PO DAILY [facility] Last Admin: 10/11/17 10:55 Dose: 1 mg Bacitracin 50,000 unit/ Sodium (Chloride) 1,000 mls @ 1,000 mls/hr IR .Q1H [facility] Stop: 10/12/17 08:44 Lidocaine/Epinephrine (Lidocaine 1%/Epinephrine 1:[id number] 30 Ml) 30 ml IJ ONCE ONE Stop: 10/12/17 07:40 Multivitamins (Hexavitamin) 1 tab PO DAILY [facility] Last Admin: 10/11/17 10:55 Dose: 1 tab Thiamine HCl (Vitamin B1 Tab) 100 mg PO DAILY [facility] Last Admin: 10/11/17 10:55 Dose: 100 mg - Labs Labs: 10/09/17 08:15 10/09/17 08:15 PT 11.3 SECONDS (9.7-12.2) 10/08/17 02:25 INR 1.0 10/08/17 02:25 APTT 44 SECONDS (21-34) H 10/08/17 02:25 - Additional Findings Additional findings: Phys Exam: VS as below Const'l: c-collar, a&o x 4, nad Head/Neck: +ttp anterior and posterior; neck supple, no jvd, trachea midline , carotid midline Eyes: maggie, nonicteric sclera, eom intact ENT: auditory acuity grossly intact, throat not congested, no nasal deformity Cardio: rrr, no m/r/g, no carotid bruit, nml s1, s2 Pulm: +mild rales in posterior bases; no accessory muscle use, equal nml breath sounds bilaterally, ctab Abd: s/nt/nd, nbs x 4 q, no palpable masses Derm: no rashes, no ulcers, no lesions Extr: +b/l 1+ pitting edema; no cyanosis, no calf tenderness, no lesions, no varicosities Neuro: cn II-XII grossly intact, ue and le 5/5 muscle strength bilaterally, no los ue, le bilaterally and core Assessment and Plan - Assessment and Plan (Free Text) Assessment: A/P 67 M no pertinent PMHx s/p mechanical fall needs perioperative cardiac risk stratification. Major cardiac risks are age and smoking. C2 Frx, Nasal Frx C2 Frx Repair - Pending ECHO results, perioperative risk is low Nasal Frx Repair - Pending ECHO results, perioperative risk is low. Thank you for this interesting consult Randall Israel DO, PGY - 1, d/w Dr. Mckinney
[2017-10-12] MEDS ORDERED: Bacitracin 50,000 UNIT in Sodium Chloride 0.9% Irrig 1,000 ML IR SCH (07:45)
[2017-10-12] MEDS ORDERED: Bacitracin Ointment 30 GM TUBE ONE (08:01)
[2017-10-12] MEDS ORDERED: Lactated Ringer's 1,000 ML IV ONE ×2 (08:10→08:15)
[2017-10-12] MEDS ORDERED: ceFAZolin IV 2 gm in Dextrose 2 GM/50 ML BAG IVPB ONE (08:13)
[2017-10-12] MEDS ORDERED: Midazolam 2 MG/2 ML VIAL ONE (08:19)
[2017-10-12] MEDS ORDERED: HYDROmorphone 0.5 mg/0.5 ml ISec IVP PRN (10:22)
--- NOTE | 2017-10-12 10:27 | PCM.SURG1 ---
Surgeon's Initial Post Op Note - Surgeon's Notes Surgeon: [email or web address] Director Marketing: Abner Type of Anesthesia: General Endo Pre-Operative Diagnosis: Unstable fx C2 Operative Findings: hardware placed Post-Operative Diagnosis: same Operation Performed: Post fusion C1-3 Specimen/Specimens Removed: none Estimated Blood Loss: EBL {In ML}: 100 Blood Products Given: N/A Drains Used: No Drains Post-Op Condition: Fair Date of Surgery/Procedure: 10/12/17 Time of Surgery/Procedure: 08:50
[2017-10-12] MEDS ORDERED: HYDROmorphone 0.5 mg/0.5 ml ISec ONE (10:28)
[2017-10-12] MEDS ORDERED: Oxycodone/Acetaminophen 5/325 mg Tab PO PRN (10:31)
[2017-10-12] MEDS: Multiple Vitamins Tab PO SCH ×2 (13:01→14:34)
[2017-10-12] MEDS: HYDROmorphone 0.5 mg/0.5 ml ISec IVP PRN ×2 (14:30→21:11)
[2017-10-12] MEDS: Potassium Ch 20mEq in D5-1/2NS 1,000 ML IV SCH ×3 (14:43→23:01)
--- NOTE | 2017-10-12 18:19 | RAD ---
PROCEDURE: Intraoperative Fluoroscopy. HISTORY: UNSTABLE FX C-2 FINDINGS: Fluoroscopic assistance was provided for cervical spine fixation.
--- NOTE | 2017-10-12 22:25 | PN ---
SUBJECTIVE: The patient is a 67-year-old male. The patient was seen and examined on the bedside early in the morning before surgery, looking comfortable. Has history of C2 vertebral fracture, went for surgery. No nausea or vomiting. No chest pain. No fever, no chills. No hematuria, no hematochezia. No swelling of the legs. PHYSICAL EXAMINATION: VITAL SIGNS: Temperature 97.3, pulse 76, respiratory rate 18, blood pressure 93/59, and pulse oximetry of 96%. HEENT: Head normocephalic. Eyes, PERRLA. Extraocular muscles intact. Conjunctivae clear. Nose swollen. Mucous membrane moist. NECK: No carotid bruit. He is in cervical collar. CHEST: Bilaterally symmetrical. HEART: S1 and S2 positive. LUNGS: Clear to auscultation. ABDOMEN: Soft. Bowel sounds present. No organomegaly. EXTREMITIES: No edema. No cyanosis. NEUROLOGIC: The patient is awake and alert. Moving all 4 extremities. No focal deficits. MEDICATIONS: DuoNeb, Librium tapering doses, bacitracin, lidocaine, multivitamin, thiamine. LABORATORY DATA: White blood cell is 9.1, hemoglobin 12.9, hematocrit 38.7, and platelets 295. Sodium 134, potassium 3.7, BUN 7, creatinine 0.6, glucose 87. ASSESSMENT AND PLAN: Mr. Beni Land is a 67-year-old male with history of ethanol abuse, has fall, fracture of cervical vertebrae, having C-collar, nasal bone fracture after the mechanical fall. Discussion done with Dr. Johnson, ENT. According to him, we do not need nasal bone surgery. The patient went for surgery from neurosurgeon Dr. Bruce Dunham and Dr. Levine. Got hardware placement, unstable fracture of C2, got fusion of C1-C3 from Dr. Dunham. Seen by gastrointestinal, cardiology, and pulmonary. The patient has history of smoking with slight cough, underlying chronic obstructive pulmonary disease, narcotic/nebulizer treatment. Fall precaution. Psych consult called because of alcohol abuse. Potassium was replaced. Dilaudid given for pain. Gastrointestinal and deep venous thrombosis prophylaxis. Repeat labs. We will follow up. Claire Gastelum MD Job # [id number]
[2017-10-13] MEDS: Albuterol-Ipratrop 3 mg / 0.5 (3 ml) UD INH SCH ×4 (01:10→19:43)
[2017-10-13] MEDS: Potassium Ch 20mEq in D5-1/2NS 1,000 ML IV SCH (03:00)
[2017-10-13] MEDS: HYDROmorphone 0.5 mg/0.5 ml ISec IVP PRN ×4 (03:16→21:34)
[2017-10-13 06:31] LABS: HEMATOCRIT 37.5 % (35.0-51.0); MEAN CELL VOLUME 94.1 fL (80.0-94.0); MEAN CORPUSCULAR HEMOGLOBIN 32.2 pg (27.0-31.0); MEAN CORPUSCULAR HGB CONC 34.2 g/dL (33.0-37.0); RED CELL DISTRIBUTION WIDTH 13.8 % (11.5-14.5); WHITE BLOOD COUNT 14.8 K/uL (4.8-10.8)
[2017-10-13 07:11] LABS: CHLORIDE 96 mmol/L (98-107); SODIUM 129 mmol/L (132-148)
[2017-10-13 07:12] LABS: POTASSIUM 4.3 mmol/L (3.6-5.2)
[2017-10-13 07:14] LABS: GFR AFRICAN-AMERICAN > 60
[2017-10-13 07:15] LABS: BLOOD UREA NITROGEN 8 mg/dL (9-20); CALCIUM 8.2 mg/dl (8.6-10.4); CARBON DIOXIDE 26 mmol/L (22-30); GLUCOSE,RANDOM 109 mg/dL (75-110)
--- NOTE | 2017-10-13 08:19 | CP.PCM.PN ---
Subjective - Date & Time of Evaluation Date of Evaluation: 10/13/17 Time of Evaluation: 08:19 - Subjective Subjective: Cardiology progress note for Dr. Hank Pereira S DO PGY - 1 Pt s/e bedside. Pt is going to be going to OR today for C2 Frx surgery. No cardiac complaints at this time. Objective - Vital Signs/Intake and Output Vital Signs (last 24 hours): Temp Pulse Resp BP Pulse Ox 98.4 F 96 H 18 118/76 95 10/13/17 07:00 10/13/17 07:00 10/13/17 07:00 10/13/17 07:00 10/13/17 07:00 Intake and Output: 10/13/17 10/13/17 06:59 18:59 Intake Total 2440 Output Total 1350 Balance 1090 - Medications Medications: Current Medications Acetaminophen (Tylenol 325mg Tab) 650 mg PO Q6 PRN PRN Reason: Pain, moderate (4-7) Last Admin: 10/11/17 18:20 Dose: 650 mg Albuterol/Ipratropium (Duoneb 3 Mg/0.5 Mg (3 Ml) Ud) 3 ml INH RQ6 [facility] Last Admin: 10/13/17 01:10 Dose: Not Given Chlordiazepoxide (Librium) 10 mg PO Q8 PRN PRN Reason: Symptoms of alcohol withdrawl Folic Acid (Folic Acid) 1 mg PO DAILY [facility] Last Admin: 10/12/17 14:35 Dose: 1 mg Hydromorphone HCl (Dilaudid) 0.5 mg IVP Q4H PRN PRN Reason: Pain, severe (8-10) Last Admin: 10/13/17 03:16 Dose: 0.5 mg Potassium Chloride/Dextrose/Sod Cl (Potassium Chl 20 Meq In D5-1/2ns) 1,000 mls @ 125 mls/hr IV .Q8H [facility] Last Admin: 10/13/17 03:00 Dose: Not Given Multivitamins (Hexavitamin) 1 tab PO DAILY [facility] Last Admin: 10/12/17 14:34 Dose: 1 tab Oxycodone/Acetaminophen (Percocet 5/325 Mg Tab) 1 tab PO Q4H PRN PRN Reason: Pain, Mild (1-3) Stop: 10/15/17 10:32 Thiamine HCl (Vitamin B1 Tab) 100 mg PO DAILY [facility] Last Admin: 10/12/17 14:35 Dose: 100 mg - Labs Labs: 10/13/17 06:15 10/13/17 06:15 PT 11.3 SECONDS (9.7-12.2) 10/08/17 02:25 INR 1.0 10/08/17 02:25 APTT 44 SECONDS (21-34) H 10/08/17 02:25 - Additional Findings Additional findings: Phys Exam: VS as below Const'l: a&o x 4, nad Head/Neck: +ttp anterior and posterior; neck supple, no jvd, trachea midline , carotid midline Eyes: maggie, nonicteric sclera, eom intact ENT: auditory acuity grossly intact, throat not congested, no nasal deformity Cardio: rrr, no m/r/g, no carotid bruit, nml s1, s2 Pulm: +mild rales in posterior bases; no accessory muscle use, equal nml breath sounds bilaterally, ctab Abd: s/nt/nd, nbs x 4 q, no palpable masses Derm: no rashes, no ulcers, no lesions Extr: +b/l 1+ pitting edema; no cyanosis, no calf tenderness, no lesions, no varicosities Neuro: cn II-XII grossly intact, ue and le 5/5 muscle strength bilaterally, no los ue, le bilaterally and core Assessment and Plan - Assessment and Plan (Free Text) Assessment: A/P 67 M no pertinent PMHx s/p mechanical fall needs perioperative cardiac risk stratification. Major cardiac risks are age and smoking. C2 Frx, Nasal Frx C2 Frx Repair - Per ACC/AHA guidelines, perioperative risk is low Nasal Frx Repair - Per ACC/AHA guidelines, perioperative risk is low. Dispo: At this time, no further cardiac intervention is needed. Please feel free to re-consult if necessary. Thank you for this interesting consult Randall Israel DO, PGY - 1, d/w Dr. Mckinney
[2017-10-13] MEDS: Multiple Vitamins Tab PO SCH (09:15)
--- NOTE | 2017-10-13 09:29 | OP ---
PROCEDURE DATE: 10/12/2017 PREOPERATIVE DIAGNOSIS: Unstable fracture of C2. POSTOPERATIVE DIAGNOSIS: Unstable fracture of C2. PROCEDURE: Posterior spinal fusion C1 to C3 with instrumentation. SURGEON: Bruce Dunham MD. JEWELLERY DESIGNER: Joshua Levine MD. TYPE OF ANESTHESIA: General endotracheal intubation. DESCRIPTION OF PROCEDURE: The patient was brought to the operating room and general anesthesia was achieved. The patient was intubated without any excessive posturing of his neck. Intravenous antibiotics were administered while spinal cord monitoring leads were placed throughout the patient's body. Real time monitoring was done by computed tomography technician in the room. Remote monitoring was done by physician as well. Sequential compression boots were placed to the patient's legs. After the antibiotics were administered, a Cuevas catheter was inserted. The Massey tongs were then applied to the patient and the patient was gently transferred onto the operating table and placed prone on rolls that bridged from the coracoid processes down to iliac crest bilaterally. The Massey tongs were secured to the headrest. Arms were padded, taped down and secured at his side. Fluoroscopic views were taken which showed the neck to be in good position and the levels of the incisions were marked. The occipital region was shaved and the neck was then sterilely prepped and draped. The level of the incision was infiltrated with lidocaine with epinephrine. An incision was made sharply in the midline and taken down through the subcutaneous tissue using sharp blunt dissection. Hemostasis was achieved using electrocautery. The fascia was divided in midline and stripped laterally off the posterior arch of C1 as well as off the spinous process and lamina of C2 and C3. Tissues were held back with angle retractors. Fluoroscopic views confirmed we were at the appropriate levels. It should be noted that the posterior left ileum was sterilely prepped and draped as well. A trocar was placed in the posterior ileum and 60 mL of bone marrow aspirate was obtained. This was sterilely passed off to the computed tomography technician who processed it through the harvest system. We collected mesenchymal stem cells and then returned to the OR table and used to process through the IC chamber as well as soaked two strips of CONFORM hydroxyapatite sponge. Thrombinated Gelfoam powder was used for hemostasis at the donor site. A cable was then placed beneath the arch of C1, which was done atraumatically. Under fluoroscopic guidance, the awl was used to create the entry point for the lateral mass screw on the right side at C3. The drill was then used under fluoroscopic guidance and tapped. Though, the patient showed good bony integrity throughout and a lateral mass screw was inserted. Similar technique was used on the left side with the awl, the drill, the tap, the ball tip probe and another lateral mass screw was inserted. Motor tracings done after insertion revealed no electrophysiologic abnormalities. The wire was then cut, so that we had one on each side of the mass to correspond to the lateral mass screws. This was passed thorough a sprayer machine and secured. A medhat was then placed and secured to the sprayer machine at the C1 level and then in the head of the screw at C3 on each side. Caps were placed. The wire was then tightened down with the caps in place to almost 10 mm, which was felt to be very tight and we had some concerns in terms of the bone quality, so we did not want to over tight it and breakthrough C1. The cap was then crimped and the wire cut. This was done in the bilateral fashion. Everything appeared to be in excellent position on AP and lateral views and well secured. It should be noted prior to placement of the medhat, high speed drill was used to corticate the posterior arch of C1 along with the spinous process and lamina at C2 and C3. Again, then the medhat was placed in and secured and the wire tightened and crimped. The strips of thrombin-soaked CONFORM were placed medially to bridge the posterior decorticated arch of C1 with the decorticated spinous process and lamina of C2 and C3. Bone grafting substrate, which consisted of the IC chamber bone, which had been processed with the bone marrow aspirate as well as Optium putty was then packed into the decorticated surfaces medially and laterally to the hardware. Again, final AP and lateral fluoroscopic views showed excellent position of the hardware. The wound was then closed in layers with interrupted sutures of 0 Vicryl in several layers of the muscle as well the fascia. The subcutaneous tissue was irrigated with antibiotic solution and closed in layers with interrupted sutures of 2-0 Vicryl and the skin was closed with sonal. Bacitracin ointment and sterile dressing were applied along with a soft cervical collar. Bacitracin bandage dressing was applied to the posterior left iliac bone marrow donor site. The tongs were then detached from the headrest and the patient gently rolled back into supine position on his bed. The tongs were removed. The patient was awaken and extubated. He was taken to recovery room in stable condition having tolerated the procedure well. He is actively moving all extremities at the time of his transfer. No permanent electrophysiologic abnormalities were noted at the completion of the case. He had an estimated blood loss of 100 mL. He received 1100 mL of Crystalloid during the procedure and had urine output of 350 mL at the end of the case. The Cuevas was removed prior to his transfer to the recovery room. Bruce Dunham MD
--- NOTE | 2017-10-13 13:12 | CP.PCM.PN ---
Subjective - Date & Time of Evaluation Date of Evaluation: 10/13/17 Time of Evaluation: 13:10 - Subjective Subjective: pod 1 has usual op site pain no arm pain or numbness dressing clean st good no sensory deficits has been oob already OK to transfer to rehab or d/c home when otherwise medically clear Objective - Vital Signs/Intake and Output Vital Signs (last 24 hours): Temp Pulse Resp BP Pulse Ox 98.4 F 96 H 18 118/76 95 10/13/17 07:00 10/13/17 07:00 10/13/17 07:00 10/13/17 07:00 10/13/17 07:00 Intake and Output: 10/13/17 10/13/17 06:59 18:59 Intake Total 2440 Output Total 1350 Balance 1090 - Medications Medications: Current Medications Acetaminophen (Tylenol 325mg Tab) 650 mg PO Q6 PRN PRN Reason: Pain, moderate (4-7) Last Admin: 10/11/17 18:20 Dose: 650 mg Albuterol/Ipratropium (Duoneb 3 Mg/0.5 Mg (3 Ml) Ud) 3 ml INH RQ6 [facility] Last Admin: 10/13/17 08:59 Dose: Not Given Folic Acid (Folic Acid) 1 mg PO DAILY [facility] Last Admin: 10/13/17 09:15 Dose: 1 mg Hydromorphone HCl (Dilaudid) 0.5 mg IVP Q4H PRN PRN Reason: Pain, severe (8-10) Last Admin: 10/13/17 12:58 Dose: 0.5 mg Potassium Chloride/Dextrose/Sod Cl (Potassium Chl 20 Meq In D5-1/2ns) 1,000 mls @ 125 mls/hr IV .Q8H [facility] Last Admin: 10/13/17 03:00 Dose: Not Given Multivitamins (Hexavitamin) 1 tab PO DAILY [facility] Last Admin: 10/13/17 09:15 Dose: 1 tab Oxycodone/Acetaminophen (Percocet 5/325 Mg Tab) 1 tab PO Q4H PRN PRN Reason: Pain, Mild (1-3) Stop: 10/15/17 10:32 Thiamine HCl (Vitamin B1 Tab) 100 mg PO DAILY [facility] Last Admin: 10/12/17 14:35 Dose: 100 mg - Labs Labs: 10/13/17 06:15 11/14/17 06:15 PT 11.3 SECONDS (9.7-12.2) 10/08/17 02:25 INR 1.0 10/08/17 02:25 APTT 44 SECONDS (21-34) H 10/08/17 02:25
[2017-10-13 16:37] VITALS: RESP 20
[2017-10-14] MEDS: Albuterol-Ipratrop 3 mg / 0.5 (3 ml) UD INH SCH ×4 (01:52→19:47)
[2017-10-14 07:40] LABS: HEMATOCRIT 37.2 % (35.0-51.0); MEAN CELL VOLUME 93.8 fL (80.0-94.0); MEAN CORPUSCULAR HEMOGLOBIN 31.9 pg (27.0-31.0); MEAN PLATELET VOLUME 8.7 fL (7.2-11.7); RED CELL DISTRIBUTION WIDTH 13.6 % (11.5-14.5); WHITE BLOOD COUNT 16.8 K/uL (4.8-10.8)
[2017-10-14 07:51] LABS: BLOOD UREA NITROGEN 8 mg/dL (9-20); CALCIUM 8.6 mg/dl (8.6-10.4); CARBON DIOXIDE 25 mmol/L (22-30); CHLORIDE 96 mmol/L (98-107); GFR AFRICAN-AMERICAN > 60; GLUCOSE,RANDOM 110 mg/dL (75-110); POTASSIUM 4.2 mmol/L (3.6-5.2); SODIUM 129 mmol/L (132-148)
[2017-10-14 08:28] VITALS: O2SAT 94
[2017-10-14] MEDS: Multiple Vitamins Tab PO SCH (10:05)
[2017-10-14] MEDS: HYDROmorphone 0.5 mg/0.5 ml ISec IVP PRN (10:06)
--- NOTE | 2017-10-14 10:39 | PN ---
DATE: SUBJECTIVE: The patient is seen and examined at the bedside, having a cervical collar, has a dressing on the nose, complaining about of mild pain. No nausea, vomiting or diarrhea. No chest pain. No palpitation. No fevers. No chills. No hematuria or hematochezia. PHYSICAL EXAMINATION: VITAL SIGNS: Temperature 98.4, pulse 96, blood pressure 118/76, respiratory rate 18. HEENT: Head is normocephalic. Nose is red, has dressing on that. Eyes: PERRLA. Extraocular muscles are intact. Conjunctivae clear. Mucous membranes moist. NECK: Supple. No carotid bruit. No JVD or thyromegaly. CHEST: Bilaterally symmetrical. HEART: S1 and S2 positive. LUNGS: Clear to auscultation. ABDOMEN: Soft. Bowel sounds positive. No organomegaly. EXTREMITIES: No edema. No cyanosis. NEUROLOGICALLY: The patient is awake and alert. Moving all four extremities. No focal deficit. MEDICATIONS: Dilaudid, DuoNeb, folic acid, multivitamins, Librium tapering doses, oxycodone, potassium, Tylenol and thiamine. LABORATORY DATA: White blood cell is 14.8, hemoglobin 12.8, hematocrit 37.8 and platelets 238. Sodium 129, potassium 4.3, BUN 8, creatinine 0.6, calcium 8.2. ASSESSMENT AND PLAN: a 67-year-old male with hyponatremia, hypocalcemia, hypertriglyceridemia, leukocytosis, history of ethanol abuse, fall, cervical vertebral fracture, nasal bone fracture. Spoke to Dr. Johnson. No nasal surgery, c repair yesterday by Dr. Levine and Dr. Dunham. Collarette Separator and registered nurse is on the case. Length of time discussion done with the patient. Asked about his family, he said he is a [place] and all his family is back home. He does not have any family member over here, but the patient is competent understanding his treatment, ready to get recovered. GI and DVT prophylaxis. Repeat labs. We will follow up. Claire Gastelum MD [facility]
--- NOTE | 2017-10-14 14:51 | CP.PCM.PN ---
Subjective - Date & Time of Evaluation Date of Evaluation: 10/14/17 Time of Evaluation: 14:45 - Subjective Subjective: PT CLEARED FOR D/C PER DR. LOPEZ. PT HAD BEEN CLEARED FOR D/C BY DR. DIAZ YESTERDAY (SEE HIS NOTE). PT TO GO TO [facility] FOR REHAB UNDER THE SERVICE OF DR. LOPEZ. SW TO ARRANGE TRANSPORTATION FOR THIS EVENING. NO FURTHER ORDERS. Objective - Vital Signs/Intake and Output Vital Signs (last 24 hours): Temp Pulse Resp BP Pulse Ox 97.1 F L 97 H 20 97/66 L 94 L 10/14/17 07:00 10/14/17 07:00 10/14/17 07:00 10/14/17 07:00 10/14/17 07:00 Intake and Output: 10/14/17 10/14/17 06:59 18:59 Intake Total 240 Output Total 550 Balance -310 - Medications Medications: Current Medications Acetaminophen (Tylenol 325mg Tab) 650 mg PO Q6 PRN PRN Reason: Pain, moderate (4-7) Last Admin: 10/11/17 18:20 Dose: 650 mg Albuterol/Ipratropium (Duoneb 3 Mg/0.5 Mg (3 Ml) Ud) 3 ml INH RQ6 [facility] Last Admin: 10/14/17 13:17 Dose: Not Given Folic Acid (Folic Acid) 1 mg PO DAILY [facility] Last Admin: 10/14/17 10:05 Dose: 1 mg Hydromorphone HCl (Dilaudid) 0.5 mg IVP Q4H PRN PRN Reason: Pain, severe (8-10) Last Admin: 10/14/17 10:06 Dose: 0.5 mg Multivitamins (Hexavitamin) 1 tab PO DAILY [facility] Last Admin: 10/14/17 10:05 Dose: 1 tab Oxycodone/Acetaminophen (Percocet 5/325 Mg Tab) 1 tab PO Q4H PRN PRN Reason: Pain, Mild (1-3) Stop: 10/15/17 10:32 Thiamine HCl (Vitamin B1 Tab) 100 mg PO DAILY [facility] Last Admin: 10/14/17 10:05 Dose: 100 mg - Labs Labs: 10/14/17 07:29 10/14/17 07:29 PT 11.3 SECONDS (9.7-12.2) 10/08/17 02:25 INR 1.0 10/08/17 02:25 APTT 44 SECONDS (21-34) H 10/08/17 02:25
[2017-10-14 17:06] VITALS: PULSE 92
[2017-10-14 18:43] VITALS: BP 103/74; TEMP 97.9
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
== END 2017-10-14 21:30 | DRG 472 ==
LOC: C.ER 22:10 → C.9E 10-08 03:26 → C.5S 10-08 04:06 → C.6T 10-08 18:35
PROVIDERS: ADMIT Internal Medicine; ATTEND Internal Medicine
PROC: HZ2ZZZZ Detoxification Services for Substance Abuse Treatment (ICD-10-PCS; 2017-10-08)
PROC: 0QB30ZZ Excision of Left Pelvic Bone, Open Approach (ICD-10-PCS; 2017-10-12)
PROC: 07DR3ZZ Extraction of Iliac Bone Marrow, Percutaneous Approach (ICD-10-PCS; 2017-10-12)
PROC: 0RG20AJ Fusion of 2 or more Cervical Vertebral Joints with Interbody Fusion Device, Posterior Approach, Anterior Column, Open Approach (ICD-10-PCS; principal; 2017-10-12 07:30)
DX: S12.100A Unspecified displaced fracture of second cervical vertebra, initial encounter for closed fracture (principal); E87.1 Hypo-osmolality and hyponatremia; J44.9 Chronic obstructive pulmonary disease, unspecified; F10.239 Alcohol dependence with withdrawal, unspecified; S02.2XXA Fracture of nasal bones, initial encounter for closed fracture; S01.21XA Laceration without foreign body of nose, initial encounter; W01.0XXA Fall on same level from slipping, tripping and stumbling without subsequent striking against object, initial encounter; E83.51 Hypocalcemia; E78.1 Pure hyperglyceridemia; Y90.7 Blood alcohol level of 200-239 mg/100 ml; E87.6 Hypokalemia

== ENCOUNTER 2019-03-10 00:50 | Emergency (ER) | payer MEDICARE ==
[2019-03-10 00:51] VITALS: BMI 22.2
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
[2019-03-10] MEDS ORDERED: Sodium Chloride 0.9% 1,000 ML IV ONE (01:06)
[2019-03-10] MEDS ORDERED: Sodium Chloride 0.9% 1,000 ML ONE (01:28)
[2019-03-10 01:31] LABS: BASO # 0.1 K/uL (0.0-0.2); BASO % 0.6 % (0.0-2.0); EOS # 0.2 K/uL (0.0-0.7); EOS % 1.7 % (0.0-4.0); HEMOGLOBIN 14.8 g/dL (12.0-18.0); LYMPH # 3.1 K/uL (1.0-4.3); LYMPH % 31.4 % (20.0-40.0); MEAN CELL VOLUME 94.8 fL (80.0-94.0); MEAN CORPUSCULAR HEMOGLOBIN 31.4 pg (27.0-31.0); MEAN CORPUSCULAR HGB CONC 33.1 g/dL (33.0-37.0); MEAN PLATELET VOLUME 8.9 fL (7.2-11.7); MONO # 0.5 K/uL (0.0-0.8); MONO % 4.9 % (0.0-10.0); NEUT % 61.4 % (50.0-75.0); NRBC % 0.1 % (0.0-2.0); RBC 4.73 Mil/uL (4.40-5.90); RED CELL DISTRIBUTION WIDTH 15.8 % (11.5-14.5); WHITE BLOOD COUNT 9.7 K/uL (4.8-10.8)
[2019-03-10] MEDS ORDERED: Iodixanol 320 MG/ML 100 ML BOTTLE IV ONE (01:35)
[2019-03-10 01:36] LABS: URINE BILIRUBIN NEGATIVE (NEGATIVE); URINE BLOOD NEGATIVE (NEGATIVE); URINE CLARITY Clear (Clear); URINE COLOR Straw (YELLOW); URINE GLUCOSE (UA) NORMAL (Normal); URINE HYALINE CAST 0-2 /lpf (0-2); URINE LEUKOCYTE ESTERASE NEG Leu/uL (Negative); URINE PROTEIN NEGATIVE (NEGATIVE); URINE UROBILINOGEN NORMAL mg/dL (0.2-1.0)
[2019-03-10 01:52] LABS: ALB/GLOB RATIO 1.7 (1.0-2.1); ALBUMIN 5.2 g/dL (3.5-5.0); ALT/SGPT 9 U/L (21-72); AST/SGOT 33 U/L (17-59); BLOOD UREA NITROGEN 8 mg/dL (9-20); GFR NON-AFRICAN AMERICAN > 60; LIPASE 50 U/L (23-300)
[2019-03-10 04:19] VITALS: BP 105/61; PULSE 74; RESP 16; TEMP 98.1; O2SAT 98
--- NOTE | 2019-03-10 10:47 | CT ---
Date of service: 03/10/2019 PROCEDURE: CT Abdomen and Pelvis with contrast HISTORY: right flank pain COMPARISON: None available TECHNIQUE: Contrast dose: 100 mL Visipaque 320 IV Radiation dose: Total exam DLP = 402.58 mGy-cm. This CT exam was performed using one or more of the following dose reduction techniques: Automated exposure control, adjustment of the mA and/or kV according to patient size, and/or use of iterative reconstruction technique. FINDINGS: LOWER THORAX: No visible consolidation, pleural effusion, or pneumothorax. LIVER: Unremarkable. GALLBLADDER AND BILE DUCTS: Unremarkable. PANCREAS: Unremarkable. SPLEEN: Unremarkable. ADRENALS: Unremarkable. KIDNEYS AND URETERS: The kidneys enhance symmetrically. No hydronephrosis or obstructing calculus identified. VASCULATURE: No aortic aneurysm. Atherosclerotic calcifications of the aorta. BOWEL: Stomach is nondistended. Lack of oral contrast limits evaluation for bowel pathology. Bowel loops appear within normal limits of caliber without evidence of obstruction. APPENDIX: No secondary signs of acute appendicitis. PERITONEUM: No significant free fluid. No definite free air. LYMPH NODES: No bulky adenopathy identified. BLADDER: Thick-walled urinary bladder. REPRODUCTIVE: Unremarkable. BONES: Degenerative changes. OTHER FINDINGS: None. IMPRESSION: Thick-walled urinary bladder; correlate with urinalysis. Diverticulosis without CT evidence of acute diverticulitis. Additional findings as above. Preliminary impression was provided by [employer].
== END 2019-03-10 04:23 | disposition home or self-care (01) ==
LOC: C.ER 00:50
DX: R10.9 Unspecified abdominal pain (principal); Z72.0 Tobacco use
CPT/HCPCS: 74177; 80053; 81001; 83690; 85025; 96374; 99285; J1885; J7030; Q9967